=== PATIENT | female | born 1980 | race Caucasian/White ===

== ENCOUNTER 2022-09-11 06:49 | Observation (INO) ==
--- NOTE | 2022-09-11 07:20 | Emergency Department Note ---
History of Present Illness General Chief complaint: Abdominal Pain Stated complaint: SEVERE PAIN IN UPPER CENTER OF ABDOMEN Time Seen by Provider: 09/11/22 07:01 History of Present Illness Maximum Pain Intensity: 8 This is an otherwise healthy 42-year-old female that presents to the emergency department via private vehicle with complaints of "epigastric abdominal pain". Patient notes that about 28 hours ago she began with epigastric abdominal pain. She has tried Pepto-Bismol without relief. Pain continues. Patient also notes of 5 loose bowel movements yesterday some of which were greasy in appearance. Patient does note that she was recently on several different antibiotics over the past few months. No aggravating factors. No alleviating factors. There is associated chest tightness. No vomiting. No blood in the stool. Preceding the symptoms patient does note that she had a cheese steak stromboli. She has felt feverish over the past 2 weeks as well. She notes trouble sleeping and eating since the pain began. Home Medications Medication Instructions Recorded Confirmed Type fluoxetine 40 mg capsule 40 mg PO QAM 09/11/22 09/11/22 History prazosin 1 mg capsule (Minipress) 1 mg PO HS 09/11/22 09/11/22 History trazodone 150 mg tablet 150 mg PO HS PRN Sleep 09/11/22 09/11/22 History Allergies Allergy/AdvReac Type Severity Reaction Status Date / Time No Known Allergies Allergy Unverified 09/11/22 13:28 Past Med/Surg History Medical History History of gastroesophageal reflux (GERD) Surgical History Hx of section Social History Smoking Status: Current every day smoker Tobacco Type: E-cigarettes / Vaping Feels Safe at Home: Yes Review of Systems A total of 10 systems reviewed and were otherwise negative Physical Exam Vital Signs Vital Signs - 24 hr 09/11/22 06:53 09/11/22 07:26 09/11/22 07:31 Temperature 36.7 C Temperature Source Temporal Artery Scan Pulse Rate 86 82 85 Respiratory Rate 20 15 Respiratory Effort / Characteristics Non-Labored Respiratory Depth Normal Blood Pressure 162/93 H 141/90 H Blood Pressure Mean 116 107 Pulse Oximetry 98 Oxygen Delivery Method Room Air Sepsis Recent Fever Within 48 Hours No Sepsis New/Unexplained Change in Mental Status N/A Sepsis Action Taken by Nursing No Action Required 09/11/22 08:00 09/11/22 08:30 09/11/22 09:00 Temperature Temperature Source Pulse Rate 74 69 69 Respiratory Rate 13 17 19 Respiratory Effort / Characteristics Respiratory Depth Blood Pressure 137/101 H 123/87 120/84 Blood Pressure Mean 113 99 96 Pulse Oximetry 98 98 97 Oxygen Delivery Method Room Air Room Air Room Air Sepsis Recent Fever Within 48 Hours Sepsis New/Unexplained Change in Mental Status Sepsis Action Taken by Nursing 09/11/22 09:30 09/11/22 10:00 09/11/22 10:30 Temperature Temperature Source Pulse Rate 70 76 74 Respiratory Rate 14 16 18 Respiratory Effort / Characteristics Respiratory Depth Blood Pressure 117/77 128/77 118/76 Blood Pressure Mean 90 94 90 Pulse Oximetry 97 97 97 Oxygen Delivery Method Room Air Room Air Room Air Sepsis Recent Fever Within 48 Hours Sepsis New/Unexplained Change in Mental Status Sepsis Action Taken by Nursing 09/11/22 11:22 09/11/22 11:00 09/11/22 11:30 Temperature Temperature Source Pulse Rate 77 78 76 Respiratory Rate 19 19 Respiratory Effort / Characteristics Respiratory Depth Blood Pressure 132/89 105/81 Blood Pressure Mean 103 89 Pulse Oximetry 98 96 Oxygen Delivery Method Room Air Room Air Sepsis Recent Fever Within 48 Hours Sepsis New/Unexplained Change in Mental Status Sepsis Action Taken by Nursing 09/11/22 12:07 09/11/22 13:00 09/11/22 13:30 Temperature Temperature Source Pulse Rate 78 73 75 Respiratory Rate 16 16 19 Respiratory Effort / Characteristics Respiratory Depth Blood Pressure 130/86 110/70 Blood Pressure Mean 100 83 Pulse Oximetry 95 95 94 Oxygen Delivery Method Room Air Room Air Room Air Sepsis Recent Fever Within 48 Hours Sepsis New/Unexplained Change in Mental Status Sepsis Action Taken by Nursing 09/11/22 14:00 09/11/22 14:30 09/11/22 15:00 Temperature Temperature Source Pulse Rate 75 81 82 Respiratory Rate 15 13 13 Respiratory Effort / Characteristics Respiratory Depth Blood Pressure 113/73 111/67 117/70 Blood Pressure Mean 86 81 85 Pulse Oximetry 95 97 97 Oxygen Delivery Method Room Air Room Air Room Air Sepsis Recent Fever Within 48 Hours Sepsis New/Unexplained Change in Mental Status Sepsis Action Taken by Nursing 09/11/22 16:11 09/11/22 15:30 09/11/22 16:00 Temperature Temperature Source Pulse Rate 80 71 76 Respiratory Rate 16 19 Respiratory Effort / Characteristics Respiratory Depth Blood Pressure 105/68 112/66 Blood Pressure Mean 80 81 Pulse Oximetry 95 95 Oxygen Delivery Method Room Air Room Air Sepsis Recent Fever Within 48 Hours Sepsis New/Unexplained Change in Mental Status Sepsis Action Taken by Nursing VITAL SIGNS - Vital signs and nursing notes were reviewed. Stable and afebrile. GENERAL - 42-year-old female appearing her stated age who is in no acute distress. Communicates well with provider and answers questions appropriately. SKIN - Without rashes. No meningeal or petechial rash. HEAD - NC/AT. EYES - PERRL with EOMI bilaterally. EARS - No deformities of external structures noted on gross examination bilaterally. NOSE - Midline and without cyanosis. No epistaxis or purulent drainage noted. MOUTH/OROPHARYNX - Without perioral cyanosis. NECK - Neck with FROM. No nuchal rigidity. LUNGS - Chest wall symmetric without accessory muscle use, intercostals retr actions, or central cyanosis. Normal vesicular breath sounds CTA B/L. No wheezes, rales, or rhonchi appreciated. CARDIAC - RRR with S1/S2. No murmur, rubs, or gallops appreciated. ABDOMEN - Abdominal contour normal without pulsations or visible masses. BS normoactive all four quadrants. There is epigastric abdominal tenderness to palpation. No guarding or rigidity. No palpable masses, hepatosplenomegaly, or ascites noted. EXTREMITIES - No clubbing or peripheral cyanosis. +5/5 strength noted in UE/LE bilaterally. NEUROLOGIC - Cranial nerves II through XII grossly intact. PSYCH - A&O, and cooperates fully with examiner. Pt is very pleasant and interacts well with examiner. Course Administered Medications Sucralfate (Sucralfate 1 Gm/10 Ml Udc) 1 gm PO QID WILFRID Stop: 10/11/22 12:59 Last Admin: 09/11/22 16:15 Dose: 1 gm Documented By: Admin: 09/11/22 12:05 Dose: 1 gm Documented By: DMLarissa Discontinued Medications Al Hydrox/Mg Hydrox/Simethicone (Gi Cocktail Ed Use) 1 dose PO ONE ONE Stop: 09/11/22 09:30 Last Admin: 09/11/22 09:38 Dose: 1 dose Documented By: JACOBY Famotidine (Pepcid 20mg Iv Push) 20 mg in 5 mls @ 2.5 mls/min IV NOW STA Stop: 09/11/22 07:34 Last Admin: 09/11/22 07:51 Dose: 2.5 mls/min Documented By: JACOBY Ioversol (Optiray 350 100ml) 88 ml IV ONCE ONE Stop: 09/11/22 09:59 Last Admin: 09/11/22 09:51 Dose: 88 ml Documented By: QUAN Morphine Sulfate (Morphine Sulfate 4 Mg/Ml 1 Ml Carp\\Vial) 4 mg IV NOW STA Stop: 09/11/22 08:36 Last Admin: 09/11/22 08:41 Dose: 4 mg Documented By: JACOBY Morphine Sulfate (Morphine Sulfate 4 Mg/Ml 1 Ml Carp\\Vial) 4 mg IV NOW STA Stop: 09/11/22 09:30 Last Admin: 09/11/22 09:38 Dose: 4 mg Documented By: JACOBY Ondansetron HCl (Ondansetron Inj 2 Mg/Ml 2 Ml Vial) 4 mg IV NOW STA Stop: 09/11/22 07:34 Last Admin: 09/11/22 07:51 Dose: 4 mg Documented By: JACOBY Medical Decision Making Laboratory Data 09/11/22 07:30 09/11/22 07:30 Lab Results 09/11/22 09/11/22 09/11/22 Range/Units 07:30 07:30 07:30 WBC 9.14 (4.8-10.8) K/ul RBC 4.30 (4.20-5.40) M/uL Hgb 12.6 (12.0-16.0) g/dl Hct 37.7 (37.0-47.0) % MCV 87.7 (80.0-100.0) fL MCH 29.3 (25.0-34.0) pg MCHC 33.4 (32.0-36.0) g/dL RDW Std Deviation 43.8 (36.4-46.3) fL RDW Coeff of Jasmin 13.7 (11.5-14.5) % Plt Count 363 (130-400) K/uL MPV 9.3 L (9.4-12.4) fL Immature Gran % (Auto) 0.3 % Neut % (Auto) 53.7 % Lymph % (Auto) 29.5 % [place] % (Auto) 9.2 % Eos % (Auto) 6.8 % Baso % (Auto) 0.5 % Neut # (Auto) 4.90 (1.40-6.50) K/uL Lymph # (Auto) 2.70 (1.2-3.4) K/uL [place] # (Auto) 0.84 H (0.11-0.59) K/uL Eos # (Auto) 0.62 H (0-0.50) K/uL Baso # (Auto) 0.05 (0-0.2) K/uL Immature Gran # (Auto) 0.03 (0.01-0.20) K/uL Sodium 136 (136-145) mmol/L Potassium 3.7 (3.5-5.1) mmol/L Chloride 103 (98-107) mmol/L Carbon Dioxide 27 (21-32) mmol/L Anion Gap 6 (3-11) BUN 12 (6-23) mg/dl Creatinine 0.82 (0.6-1.2) mg/dl Est Cr Clr Drug Dosing 110.1 ml/min Est GFR ( Amer) 103.7 ml/min Est GFR (Non-Af Amer) 89.5 ml/min BUN/Creatinine Ratio 14.6 (10-20) Glucose 90 (70-99(Fasting)) mg/dl Calcium 9.4 (8.5-10.1) mg/dl Total Bilirubin 0.4 (0.2-1.0) mg/dl AST 22 (13-39) U/L ALT 26 (7-52) U/L Alkaline Phosphatase 63 (34-104) U/L Troponin I High Sens 2.9 (0-14) pg/ml Total Protein 8.1 (6.0-8.3) gm/dl Albumin 4.2 (3.4-5.0) gm/dl Globulin 3.9 (2.5-4.0) gm/dl Albumin/Globulin Ratio 1.1 (0.9-2) Lipase 20 (11-82) U/L HCG, Qual Negative (Negative) Urine Color Urine Appearance (Clear) Urine pH (4.5-7.5) Ur Specific [place] (1.000-1.030) Urine Protein (Negative) Urine Glucose (UA) (Negative) Urine Ketones (Negative) Urine Blood (Negative) Urine Nitrite (Negative) Urine Bilirubin (Negative) Urine Urobilinogen (Negative) Ur Leukocyte Esterase (Negative) POC Ur Test (NEG) SARS-CoV-2, RNA, NAAT (NEGATIVE) 09/11/22 09/11/22 09/11/22 Range/Units 07:41 07:56 08:06 WBC (4.8-10.8) K/ul RBC (4.20-5.40) M/uL Hgb (12.0-16.0) g/dl Hct (37.0-47.0) % MCV (80.0-100.0) fL MCH (25.0-34.0) pg MCHC (32.0-36.0) g/dL RDW Std Deviation (36.4-46.3) fL RDW Coeff of Jasmin (11.5-14.5) % Plt Count (130-400) K/uL MPV (9.4-12.4) fL Immature Gran % (Auto) % Neut % (Auto) % Lymph % (Auto) % [place] % (Auto) % Eos % (Auto) % Baso % (Auto) % Neut # (Auto) (1.40-6.50) K/uL Lymph # (Auto) (1.2-3.4) K/uL [place] # (Auto) (0.11-0.59) K/uL Eos # (Auto) (0-0.50) K/uL Baso # (Auto) (0-0.2) K/uL Immature Gran # (Auto) (0.01-0.20) K/uL Sodium (136-145) mmol/L Potassium (3.5-5.1) mmol/L Chloride (98-107) mmol/L Carbon Dioxide (21-32) mmol/L Anion Gap (3-11) BUN (6-23) mg/dl Creatinine (0.6-1.2) mg/dl Est Cr Clr Drug Dosing ml/min Est GFR ( Amer) ml/min Est GFR (Non-Af Amer) ml/min BUN/Creatinine Ratio (10-20) Glucose (70-99(Fasting)) mg/dl Calcium (8.5-10.1) mg/dl Total Bilirubin (0.2-1.0) mg/dl AST (13-39) U/L ALT (7-52) U/L Alkaline Phosphatase (34-104) U/L Troponin I High Sens (0-14) pg/ml Total Protein (6.0-8.3) gm/dl Albumin (3.4-5.0) gm/dl Globulin (2.5-4.0) gm/dl Albumin/Globulin Ratio (0.9-2) Lipase (11-82) U/L HCG, Qual (Negative) Urine Color Yellow Urine Appearance Clear (Clear) Urine pH 5.0 (4.5-7.5) Ur Specific [place] 1.020 (1.000-1.030) Urine Protein Negative (Negative) Urine Glucose (UA) Negative (Negative) Urine Ketones Negative (Negative) Urine Blood Negative (Negative) Urine Nitrite Negative (Negative) Urine Bilirubin Negative (Negative) Urine Urobilinogen Negative (Negative) Ur Leukocyte Esterase Negative (Negative) POC Ur Test NEG (NEG) SARS-CoV-2, RNA, NAAT NEGATIVE (NEGATIVE) Imaging Data Radiologist's Impression: Chest X-Ray 09/11/22 07:34 XR chest 1V portable CLINICAL HISTORY: Epigastric abdominal pain. COMPARISON STUDY: No previous studies for comparison. FINDINGS: There is no lucency under the hemidiaphragms to suggest pneumope ritoneum. Lung volumes are normal. Lungs are clear. There is no pneumothorax or pleural effusion. Cardiac size is normal. Mediastinal contours are normal. There is no evidence for pulmonary edema. IMPRESSION: No acute cardiopulmonary findings. ACT 112: Negative or not required by law. Electronically signed by: Carmelo Wilson M.D. 09/11/2022 8:06 AM Gallbladder Ultrasound 09/11/22 07:34 US gallbladder CLINICAL HISTORY: Epigastric abdominal pain. COMPARISON STUDY: No previous studies for comparison. FINDINGS: The liver is sonographically normal. There is no biliary ductal dilatation. The common bile duct measures 3 mm in caliber. The gallbladder is normal. There are no gallstones. Pancreatic body is normal. Head and tail are partially obscured. No right hydronephrosis. IMPRESSION: Unremarkable right upper quadrant ultrasound. ACT 112: Negative or not required by law. Electronically signed by: Carmelo Wilson M.D. 09/11/2022 8:47 AM Abdomen/Pelvis CT 09/11/22 09:29 CT abd pelvis IV con only CLINICAL HISTORY: Epigastric abd pain TECHNIQUE: Helical axial images of the abdomen and pelvis were obtained and displayed. Automated dose lowering techniques and/or adjustment according to patient size were utilized for this exam. This exam was performed with intravenous contrast. CT DOSE: 882.80 mGy.cm COMPARISON: Comparison is made to gallbladder ultrasound 09/11/2022 FINDINGS: Lower chest: No acute abnormality. Liver: Unremarkable. No focal lesions are seen. Gallbladder and biliary tree: No calcified gallstones. Normal caliber wall. No intra- or extrahepatic biliary ductal dilation. Pancreas: Unremarkable, no focal lesions. Spleen: Unremarkable. Adrenals: Unremarkable. Kidneys and ureters: Unremarkable. Bladder: Unremarkable. Reproductive organs: 11.0 cm left and 3.1 cm right ovarian cysts noted. Bowel: Unremarkable. Lymph nodes Retroperitoneal: Unremarkable. Pelvic: Unremarkable. Mesenteric: Unremarkable. Peritoneum: Normal. Vessels: Unremarkable. Abdominal wall: A fat-containing umbilical hernia is seen. Bones: Unremarkable. IMPRESSION: No acute abnormalities in particular no evidence of pancreatitis or cholecystitis. Large bilateral ovarian cysts are incidentally noted. ACT 112: Negative or not required by law. Electronically signed by: Nikolas Cheung M.D. 09/11/2022 10:13 AM [facility] Narrative Patient was seen and evaluated as above in room B03. Review was performed of triage nursing notes and vital signs. After obtaining a thorough history and physical examination the above work up was performed. Patient presents to us today with epigastric abdominal discomfort. No known trauma or injury. No fevers or chills. She notes decreased appetite/trouble eating this started when her symptoms started. Clinically she is well-appearing and nontoxic. She does have reproducible tenderness to palpation overlying the epigastric region of the abdomen. Options of care were discussed with the patient. IV access was established. Labs were drawn. She was medicated with IV fluids, IV antiemetics. IV analg esia also ordered. IV Pepcid ordered. GI cocktail also provided. Labs reveal no leukocytosis or concerning anemia. No emergent metabolic disturbance. Troponin within normal range. Urinalysis negative. UPT negative. COVID testing negative. EKG reveals normal sinus rhythm at a rate of 76 beats per minute. QTc 436. QRS 80. No ST elevation. No previous for comparison. Ultrasound of the gallbladder was unremarkable. Chest x-ray negative. Decision was made to proceed with a CT scan of the abdomen/pelvis. This was negative for emergent process. I did review her incidentals on the CT scan. She is to follow-up in the outpatient setting for the large bilateral ovarian cysts. These not felt to be causing her presentation today. Patient did require another dose of IV analgesics. With the patient having ongoing epigastric abdominal pain that is preventing her from sleeping and eating and also requiring multiple doses of IV narcotics at this time it is felt that further evaluation and management in the inpatient setting is warranted. Case discussed with the hospitalist. Please refer to further documentation regarding her stay. Patient amenable to plan of care. GCS: 15 In the evaluation and treatment of this patient, the following differential diagnoses were considered: ASC, IN, Pneumonia, GERD, Cholecystitis, Ascending Cholangitis, Cholydocholithiasis, Bowel Obstruction, PE, Amongst Others. Impression & Plan Abdominal pain, epigastric Discharge Plan Visit Data Chief Complaint: Abdominal Pain Stated Complaint: SEVERE PAIN IN UPPER CENTER OF ABDOMEN ED Provider: Chelsea Saleem ED Midlevel Provider: Ralf Rhodes Discharge Problem: Abdominal pain, epigastric Patient Disposition: Admitted As Inpatient Condition: Good Forms Stand Alone Forms: My [place] Prescriptions Prescriptions: No Action fluoxetine 40 mg Capsule 40 mg PO QAM prazosin [Minipress] 1 mg Capsule 1 mg PO HS trazodone 150 mg Tablet 150 mg PO HS PRN (Reason: Sleep) Referrals Referrals: PCP,NO [Physician] -
[2022-09-11] MEDS ORDERED: FAMOTIDINE 20MG IV PUSH 20 MG/5 ML SYR IV STA (07:33)
[2022-09-11] MEDS ORDERED: ONDANSETRON INJ 2 MG/ML 2 ML VIAL IV STA (07:33)
[2022-09-11 07:51] LABS: Basophils # (auto) 0.05 K/uL (0-0.2); Basophils % (auto) 0.5 %; Eosinophils # (auto) 0.62 K/uL (0-0.50); Eosinophils % (auto) 6.8 %; Hematocrit (blood only) 37.7 % (37.0-47.0); Hemoglobin 12.6 g/dl (12.0-16.0); Immature Granulocytes # (auto) 0.03 K/uL (0.01-0.20); Immature Granulocytes % (auto) 0.3 %; Lymphocytes % (auto) 29.5 %; Mean Corpuscular Hemoglobin 29.3 pg (25.0-34.0); Mean Corpuscular Hgb Conc 33.4 g/dL (32.0-36.0); Mean Corpuscular Volume 87.7 fL (80.0-100.0); Mean Platelet Volume 9.3 fL (9.4-12.4); Monocytes # (auto) 0.84 K/uL (0.11-0.59); Monocytes % (auto) 9.2 %; Neutrophils % (auto) 53.7 %; Platelet Count 363 K/uL (130-400); RDW Coefficient of Variation 13.7 % (11.5-14.5); RDW Standard Deviation 43.8 fL (36.4-46.3); White Blood Count 9.14 K/ul (4.8-10.8)
[2022-09-11 08:02] LABS: Pregnancy Test, Serum Negative (Negative)
[2022-09-11 08:04] LABS: Albumin Globulin Ratio 1.1 (0.9-2); Albumin Level 4.2 gm/dl (3.4-5.0); BUN Creatinine Ratio 14.6 (10-20); Bilirubin,Total 0.4 mg/dl (0.2-1.0); Calcium 9.4 mg/dl (8.5-10.1); Creatinine Clr Calc Pharmacy 110.1 ml/min; Est GFR (African American) 103.7 ml/min; Est GFR (Non-African American) 89.5 ml/min; Globulin 3.9 gm/dl (2.5-4.0); Potassium 3.7 mmol/L (3.5-5.1); Total Protein 8.1 gm/dl (6.0-8.3)
--- NOTE | 2022-09-11 08:08 | XRay Report ---
XR chest 1V portable CLINICAL HISTORY: Epigastric abdominal pain. COMPARISON STUDY: No previous studies for comparison. FINDINGS: There is no lucency under the hemidiaphragms to suggest pneumoperitoneum. Lung volumes are normal. Lungs are clear. There is no pneumothorax or pleural effusion. Cardiac size is normal. Medias tinal contours are normal. There is no evidence for pulmonary edema. IMPRESSION: No acute cardiopulmonary findings. ACT 112: Negative or not required by law. Electronically signed by: Carmelo Wilson M.D. 09/11/2022 8:06 AM
[2022-09-11 08:10] LABS: Troponin I High Sensitivity 2.9 pg/ml (0-14)
[2022-09-11 08:31] LABS: Appearance Urine Clear (Clear); Bilirubin Urine Negative (Negative); Blood Urine Negative (Negative); Color Urine Yellow; Glucose Urine UA Negative (Negative); Ketones Urine Negative (Negative); Leukocyte Esterase Urine Negative (Negative); Nitrite Urine Negative (Negative); Protein Urine Negative (Negative); Urobilinogen Urine Negative (Negative)
[2022-09-11] MEDS ORDERED: MoRPHine SULFATE 4 MG/ML 1 ML CARP\\VIAL IV STA ×2 (08:35→09:29)
--- NOTE | 2022-09-11 08:48 | Ultrasound Report ---
US gallbladder CLINICAL HISTORY: Epigastric abdominal pain. COMPARISON STUDY: No previous studies for comparison. FINDINGS: The liver is sonographically normal. There is no biliary ductal dilatation. The common bile duct measures 3 mm in caliber. The gallbladder is normal. There are no gallstones. Pancreatic body i s normal. Head and tail are partially obscured. No right hydronephrosis. IMPRESSION: Unremarkable right upper quadrant ultrasound. ACT 112: Negative or not required by law. Electronically signed by: Carmelo Wilson M.D. 09/11/2022 8:47 AM
[2022-09-11] MEDS ORDERED: GI COCKTAIL ED USE PO ONE (09:29)
[2022-09-11] MEDS ORDERED: OPTIRAY 350 100ml IV ONE (09:58)
--- NOTE | 2022-09-11 10:15 | CT Scan Report ---
CT abd pelvis IV con only CLINICAL HISTORY: Epigastric abd pain TECHNIQUE: Helical axial images of the abdomen and pelvis were obtained and displayed. Automated dose lowering techniques and/or adjustment according to patient size were utilized for this exam. This e xam was performed with intravenous contrast. CT DOSE: 882.80 mGy.cm COMPARISON: Comparison is made to gallbladder ultrasound 09/11/2022 FINDINGS: Lower chest: No acute abnormality. Liver: Unremarkable. No focal lesions are seen. Gallbladder and biliary tree: No calcified gallstones. Normal caliber wall. No intra- or extrahepatic biliary ductal dilation. Pancreas: Unremarkable, no focal lesions. Spleen: Unremarkable. Adrenals: Unremarkable. Kidneys and ureters: Unremarkable. Bladder: Unremarkable. Reproductive organs: 11.0 cm left and 3.1 cm right ovarian cysts noted. Bowel: Unremarkable. Lymph nodes Retroperitoneal: Unremarkable. Pelvic: Unremarkable. Mesenteric: Unremarkable. Peritoneum: Normal. Vessels: Unremarkable. Abdominal wall: A fat-containing umbilical hernia is seen. Bones: Unremarkable. IMPRESSION: No acute abnormalities in particular no evidence of pancreatitis or cholecystitis. Large bilateral ov lauren cysts are incidentally noted. ACT 112: Negative or not required by law. Electronically signed by: Nikolas Cheung M.D. 09/11/2022 10:13 AM
--- NOTE | 2022-09-11 11:18 | History & Physical Report ---
Date of Service September 11, 2022 Assessment & Plan (1) Abdominal pain: Plan: -Admit to med/surge -The patient is currently afebrile, hemodynamically stable, and stable on RA -At this time the patient's symptoms appear most-likely associated with gastritis and esophagitis but cannot rule out gallbladder/biliary etiology at this time -No signs of infection, symptoms exacerbated with greasy/fatty foods, CT of the abd/pelvis, RUQ US, and chest xray negative for acute findings -Will continue to treat as gastritis for now with BID IV famotidine, will start QID Carafate, and prn Zofran -Will start a clear liquid diet, advance as able -If her symptoms do not resolve would consider a HIDA scan and Gi consult for continue evaluation -BL SCDs for DVT ppx -AM CBC and BMP (2) Anxiety and depression: Plan: -Continue fluoxetine and HS trazodone for sleep Plan The patient was discussed with Dr. Smith at the time of the admission History of Present Illness Chief Complaint: abdominal pain Primary Care Provider: Mark Bruner DO Becki is a 42 year old female with a PMH significant for GERD, anxiety, and depression who presented to the [facility] ED on 09/11/22 with a chief complaint of epigastric abdominal pain. In the ED the patient was found to be afebrile, hemodynamically stable, and stable on RA. Labs including CBC, CMP, lipase, UA, and covid screen were WNL. Chest xray was read as "No acute cardiopulmonary findings.". RUQ US was read as "Unremarkable right upper quadrant ultrasound.". CT of the abd/pelvis with IV contrast was read as "No acute abnormalities in particular no evidence of pancreatitis or cholecystitis. Large bilateral ovarian cysts are incidentally noted.". Prior to admission the patient was given one dose of GI cocktail, 8 mg IV morphine, 4 mg IV zofran, and 20 mg IV famotidine but her symptoms persisted. At the time of the exam the patient was resting comfortably in bed in no acute distress. She states that she ate a cheese steak stromboli for dinner on Sunday (09/09); she woke up at 0300 on 09/10/22 with severe epigastric abdominal pain. She describes the pain as burning/cramping, an 8/10 at it's worst, with radiation to the back. She has been nauseous but denies any recent vomiting. When asked, she denies taking any medications to try and treat her pain at home. When asked, she feels as though she has been having chills and has been sweaty at night but has not taken her temperature. She has had a non-productive cough, denies SOB, chest pain, other abdominal pain, dysuria, hematuria, melena, bright red blood in her bowel movements, and recent LE swelling. When asked about bowel movements she states that she has been experiencing both diarrhea, and hard stool over the past few weeks. Yesterday she experienced approximately 5 ep isodes of non-bloody diarrhea and noted her last BM to be "oily". She states that since June she has been treated with multiple different Penicillin antibiotics for tooth and upper respiratory infections. She will sporadically take Naproxen for pain but has not taken any over the past week. She does not smoke tobacco but does use a Vape Pen which contains nicotine. She does not use alcohol and states that she is watched closely by her port patrol officer for Drug or alcohol use. Due to her symptoms she has been unable to eat or drink consistently over the past 24 hours. Since receiving her initial treatment in the ED her symptoms have improved but have not resolved. Please refer to Dr. Smith's attestation for any changes to the treatment plan Home Medications Medication Instructions Recorded Confirmed Type fluoxetine 40 mg capsule 40 mg PO QAM 09/11/22 09/11/22 History prazosin 1 mg capsule (Minipress) 1 mg PO HS 09/11/22 09/11/22 History trazodone 150 mg tablet 150 mg PO HS PRN Sleep 09/11/22 09/11/22 History Past Med/Surg History Medical History History of gastroesophageal reflux (GERD) Surgical History Hx of section Social History Smoking Status: Current every day smoker Tobacco Type: E-cigarettes / Vaping Feels Safe at Home: Yes Review of Systems Review of Systems: Denies current fever, chills, headache, changes in vision, hearing, taste, and smell, chest pain, SOB, cough, nausea, vomiting, hematemesis, melena, dysuria, hematuria, and recent falls. All systems have been reviewed and are otherwise negative. Physical Exam Physical Exam: Physical Exam: General: In no acute distress, stated age, well-nourished, good hygiene HEENT: Normocephalic, atraumatic, no scleral icterus, pupils around round, symmetrical, and reactive to light, moist mucus membranes, trachea midline, no thyromegaly Chest/Pulm: No respiratory distress, symmetrical chest expansion, clear breath sounds throughout Cardiac: RRR, no murmurs noted Abdomen: Negative for ascites and bruising, normoactive bowel sounds, soft, tender to palpation in the epigastric region, otherwise non-tender Musculoskeletal: Symmetrical and without signs of acute trauma, upper and lower extremities with full ROM, no atrophy, spasticity, or flaccidity; ankle bracelet for Mcpherson located on the left LE Extremities: Radial, dorsalis pedis, and posterior tibial pulses are intact and symmetrical, no edema noted in the BL LE's Skin: Warm, dry, no rashes , lesions, or scars noted Neuro: Alert and oriented to person, place, month, year, and president, no focal defects, CN II-XII tested and intact, no tremors noted Psych: No acute distress, calm and cooperative during the exam Results & Data Results & Data ([facility]) Vital Signs (Past 12 Hours) Vital Signs Temp Pulse Resp BP Pulse Ox O2 Del Method 09/11/22 10:30 74 18 118/76 97 Room Air 09/11/22 10:00 76 16 128/77 97 Room Air 09/11/22 09:30 70 14 117/77 97 Room Air 09/11/22 09:00 69 19 120/84 97 Room Air 09/11/22 08:30 69 17 123/87 98 Room Air 09/11/22 08:00 74 13 137/101 H 98 Room Air 09/11/22 07:31 85 15 141/90 H 09/11/22 07:26 82 09/11/22 06:53 36.7 C 86 20 162/93 H 98 Room Air Laboratory Results Abnormal lab results 09/11/22 Range/Units 07:30 MPV 9.3 L (9.4-12.4) fL [place] # (Auto) 0.84 H (0.11-0.59) K/uL [place] # (Auto) 0.62 H (0-0.50) K/uL Diagnostic Findings Chest X-Ray 09/11/22 07:34 XR chest 1V portable CLINICAL HISTORY: Epigastric abdominal pain. COMPARISON STUDY: No previous studies for comparison. FINDINGS: There is no lucency under the hemidiaphragms to suggest pneumoperitoneum. Lung volumes are normal. Lungs are clear. There is no pneumothorax or pleural effusion. Cardiac size is normal. Mediastinal contours are normal. There is no evidence for pulmonary edema. IMPRESSION: No acute cardiopulmonary findings. ACT 112: Negative or not required by law. Electronically signed by: Carmelo Wilson M.D. 09/11/2022 8:06 AM Gallbladder Ultrasound 09/11/22 07:34 US gallbladder CLINICAL HISTORY: Epigastric abdominal pain. COMPARISON STUDY: No previous studies for comparison. FINDINGS: The liver is sonographically normal. There is no biliary ductal dilatation. The common bile duct measures 3 mm in caliber. The gallbladder is normal. There are no gallstones. Pancreatic body is normal. Head and tail are partially obscured. No right hydronephrosis. IMPRESSION: Unremarkable right upper quadrant ultrasound. ACT 112: Negative or not required by law. Electronically signed by: Carmelo Wilson M.D. 09/11/2022 8:47 AM Abdomen/Pelvis CT 09/11/22 09:29 CT abd pelvis IV con only CLINICAL HISTORY: Epigastric abd pain TECHNIQUE: Helical axial images of the abdomen and pelvis were obtained and displayed. Automated dose lowering techniques and/or adjustment according to patient size were utilized for this exam. This exam was performed with intravenous contrast. CT DOSE: 882.80 mGy.cm COMPARISON: Comparison is made to gallbladder ultrasound 09/11/2022 FINDINGS: Lower chest: No acute abnormality. Liver: Unremarkable. No focal lesions are seen. Gallbladder and biliary tree: No calcified gallstones. Normal caliber wall. No intra- or extrahepatic biliary ductal dilation. Pancreas: Unremarkable, no focal lesions. Spleen: Unremarkable. Adrenals: Unremarkable. Kidneys and ureters: Unremarkable. Bladder: Unremarkable. Reproductive organs: 11.0 cm left and 3.1 cm right ovarian cysts noted. Bowel: Unremarkable. Lymph nodes Retroperitoneal: Unremarkable. Pelvic: Unremarkable. Mesenteric: Unremarkable. Peritoneum: Normal. Vessels: Unremarkable. Abdominal wall: A fat-containing umbilical hernia is seen. Bones: Unremarkable. IMPRESSION: No acute abnormalities in particular no evidence of pancreatitis or cholecystitis. Large bilateral ovarian cysts are incidentally noted. ACT 112: Negative or not required by law. Electronically signed by: Nikolas Cheung M.D. 09/11/2022 10:13 AM ECG Additional Comments: Normal sinus rhythm Normal ECG No previous ECGs available Confirmed by Guillermo Horn ([id number]) on 09/11/2022 11:24:59 AM Code Status & VTE Plan Code Status Full code VTE Prophylaxis Plan VTE Prophylaxis will be ordered: Yes Supervising Physician Co-Signing Physician Notes PA Supervision Note: I personally saw and examined the patient. I verified all cantrell points and agree with JASS Pete with the following exceptions and/or additions: Subjective: 42-year-old female with a past medical history of GERD, anxiety, depression who presents with 2 days of intermittent cramping severe epigastric pain that sometimes radiates into the back. She does not eat very many greasy or fatty foods however did have a cheese steak stromboli 2 days ago, does eat some tomato containing foods (does eat SpaghettiOs on a fairly regular basis, including about 4 bites last night). No recent fevers or chills, chest pain, shortness of breath, fevers associated with this. No dizziness or lightheadedness, sensation of passing out. She did not take any medications at home, does endorse some relief with the GI cocktail that she received in the ER. Physical exam: Vitals reviewed Gen: Alert and oriented, NAD HEENT: anicteric sclerae, EOMI CV: RRR no murmurs, no peripheral edema Pulm: CTAB no wheezes, crackles Abd: +BS, abdomen soft, moderately tender in the epigastric region otherwise nontender Ext: no edema Skin: no rashes, warm/dry Neuro: No focal neurologic deficits Labs, Rads, and ECG reviewed: CBC, CMP, urinalysis unremarkable, COVID-19 ne gative. Troponin normal. CTAP with IV contrast without evidence of aortic abnormality, gallbladder normal-appearing. Gallbladder ultrasound also without acute pathology. Chest x-ray without evidence of pneumonia or other acute pathology. EKG personally interpreted with me shows normal sinus rhythm with a heart rate of 76, normal AL/QRS/QTc, no ST or T wave abnormalities Assessment and Plan: Epigastric pain, suspected GERD/gastritis: Symptoms fairly significant despite GI cocktail that she is receiving in the ER, though they did help some with her symptoms. Pepcid IV twice daily and Carafate for suspected gastritis, will be curious to see if patient's symptoms improve with some light diet as it is possible that she has PUD. If symptoms not improving with the above we will add PPI. If symptoms still not improving will ask for GI consult and get HIDA scan, LFTs and WBC count negative so less likely however not impossible that it will declare itself over the coming day. Plan otherwise as stated above. PG Care Time/CCT Total # of Minutes Spent Total Time Spent with Patient: Total time spent is greater than 50% in coordination of care (as documented) at patient's floor/unit and/or counseling patient: C[place] [address] INT INP/OBS CARE 3/75MIN Patient Type Established Medical Decision Making High Complexity Diagnoses Abdominal pain R10.9 Anxiety and depression F41.9; F32.A
--- NOTE | 2022-09-11 11:25 | Electrocardiogram Report ---
Test Reason : Blood Pressure : / mmHG Vent. Rate : 076 BPM Atrial Rate : 076 BPM P-R Int : 156 ms QRS Dur : 080 ms QT Int : 388 ms P-R-T Axes : 021 011 039 degrees QTc Int : 436 ms Normal sinus rhythm Normal ECG No previous ECGs available Confirmed by Guillermo Horn ([id number]) on 09/11/2022 11:24:59 AM Referred By: REFERRED SELF Confirmed By:Rancho Horn
[2022-09-11] MEDS: SUCRALFATE 1 GM/10 ML UDC PO SCH ×3 (12:05→20:42)
[2022-09-11] MEDS ORDERED: Patient's ALLERGY Info needs ENTERED SCH (13:15)
[2022-09-11] MEDS ORDERED: traZODone HCL 50 MG TAB PO PRN (17:52)
[2022-09-11] MEDS: ondansetron HCL 6 MG in DEXTROSE 5% 50 ML IV PRN (18:13)
[2022-09-11] MEDS: MoRPHine SULFATE 2 MG/ML CARP IV PRN (18:31)
[2022-09-11] MEDS: FAMOTIDINE 20 MG in SYRINGE 3 ML IV SCH (20:02)
[2022-09-11] MEDS: PANTOprazole 40 MG in SYRINGE 0 ML IV SCH (20:02)
[2022-09-12] MEDS: MoRPHine SULFATE 2 MG/ML CARP IV PRN ×2 (02:27→07:46)
[2022-09-12] MEDS: ondansetron HCL 6 MG in DEXTROSE 5% 50 ML IV PRN (02:35)
[2022-09-12 06:59] LABS: Hemoglobin 11.3 g/dl (12.0-16.0); Mean Corpuscular Hemoglobin 29.4 pg (25.0-34.0); Mean Corpuscular Hgb Conc 33.2 g/dL (32.0-36.0); Mean Corpuscular Volume 88.3 fL (80.0-100.0); Mean Platelet Volume 9.2 fL (9.4-12.4); Platelet Count 317 K/uL (130-400); RDW Coefficient of Variation 13.7 % (11.5-14.5); RDW Standard Deviation 44.4 fL (36.4-46.3); Red Blood Count 3.85 M/uL (4.20-5.40); White Blood Count 9.21 K/ul (4.8-10.8)
[2022-09-12 07:14] LABS: BUN Creatinine Ratio 16.5 (10-20); Calcium 8.6 mg/dl (8.5-10.1); Creatinine Clr Calc Pharmacy 106.2 ml/min; Est GFR (African American) 99.3 ml/min; Est GFR (Non-African American) 85.7 ml/min; Magnesium 2.1 mg/dl (1.7-2.4)
[2022-09-12] MEDS: PANTOprazole 40 MG in SYRINGE 0 ML IV SCH (07:46)
[2022-09-12] MEDS: FAMOTIDINE 20 MG in SYRINGE 3 ML IV SCH (07:48)
[2022-09-12] MEDS: SUCRALFATE 1 GM/10 ML UDC PO SCH ×4 (07:56→22:06)
[2022-09-12] MEDS: FLUoxetine HCL 20 MG CAP PO SCH (07:56)
[2022-09-12] MEDS: ACETAMINOPHEN 325 MG TAB PO PRN ×2 (11:00→16:59)
--- NOTE | 2022-09-12 15:02 | Hospitalist Progress Note ---
Date of Service September 12, 2022 Assessment & Plan (1) Abdominal pain: Plan: Due to suspected acute gastritis. Continue PPI therapy and Carafate suspension. Advance diet as tolerated. She is eating well enough that no IV fluids needed at this time. No melena or hematochezia. (2) Anxiety and depression: Plan: Stable. Treated with fluoxetine Plan Hopeful discharge to home tomorrowSeptember 13 Admission and Anticipated Discharge Date Admission Date: September 11, 2022 Subjective Alert and oriented. Afebrile with stable vital signs. I suspect she has acute gastritis causing her symptoms. Diet has been advanced. Continue PPI therapy and Carafate suspension. Probably home tomorrowSeptember 13 Review of Systems Review of Systems: Constitutional-no fever or chills ENT-no blurred vision, no double vision, no epistaxis, no sore throat Respiratory-no cough, no wheezing, no shortness of breath Cardiac-no palpitations, no chest pain, no syncope GI-epigastric discomfort and intermittent nausea. No vomiting. No melena. No hematochezia -no urinary retention, no urinary incontinence, no dysuria, no hematuria Musculoskeletal-no joint pain, no muscle tenderness Skin-no bruising, no rashes, no pruritus Neuro-no isolated weakness, no paresthesia, no weakness Psych-no depression, no anxiety Physical Exam Physical Exam: General-alert and oriented x3, no fevers, no chills HEENT-head atraumatic and normocephalic, pupils equal and reactive to light, extraocular muscles intact Neck-no lymphadenopathy or thyromegaly, trachea midline Chest-clear to auscultation percussion. No rales wheezing or rhonchi Cardiac-regular rate and rhythm, normal S1 and S2 Abdomen-normal bowel sounds, mild epigastric tenderness. No rebound or guarding. Extremities-no cyanosis, clubbing, or edema Neuro-cranial nerves II through XII intact, motor and sensory function within normal limits, strength symmetrical , no focal deficits Psych-normal affect, normal mood Results & Data Results & Data ([facility]) Vital Signs (Past 12 Hours) Vital Signs Temp Pulse Resp BP Pulse Ox O2 Del Method 09/12/22 11:19 36.6 C 77 16 113/76 99 Room Air 09/12/22 07:31 36.8 C 82 16 105/69 97 Room Air Laboratory Results 09/12/22 06:35 09/12/22 06:35 PG Care Time/CCT Total # of Minutes Spent Total Time Spent with Patient: Total time spent is greater than 50% in coordination of care (as documented) at patient's floor/unit and/or counseling patient: Coding Level of Care Code 03952 SUB INP/OBS CARE 3/50MIN Diagnoses Abdominal pain R10.9 Anxiety and depression F41.9; F32.A
[2022-09-12] MEDS: PANTOprazole 40 MG TAB PO SCH (22:05)
[2022-09-13] MEDS: PANTOprazole 40 MG TAB PO SCH (08:17)
[2022-09-13] MEDS: SUCRALFATE 1 GM/10 ML UDC PO SCH (08:18)
[2022-09-13] MEDS: FLUoxetine HCL 20 MG CAP PO SCH (08:18)
[2022-09-13 08:46] LABS: Basophils # (auto) 0.03 K/uL (0-0.2); Basophils % (auto) 0.4 %; Eosinophils # (auto) 0.43 K/uL (0-0.50); Hematocrit (blood only) 38.5 % (37.0-47.0); Hemoglobin 12.5 g/dl (12.0-16.0); Immature Granulocytes # (auto) 0.01 K/uL (0.01-0.20); Immature Granulocytes % (auto) 0.1 %; Lymphocytes # (auto) 2.66 K/uL (1.2-3.4); Lymphocytes % (auto) 31.1 %; Mean Corpuscular Hemoglobin 29.1 pg (25.0-34.0); Mean Corpuscular Hgb Conc 32.5 g/dL (32.0-36.0); Mean Corpuscular Volume 89.7 fL (80.0-100.0); Mean Platelet Volume 9.4 fL (9.4-12.4); Monocytes # (auto) 0.79 K/uL (0.11-0.59); Monocytes % (auto) 9.2 %; Neutrophils # (auto) 4.64 K/uL (1.40-6.50); Neutrophils % (auto) 54.2 %; Platelet Count 334 K/uL (130-400); RDW Coefficient of Variation 13.5 % (11.5-14.5); RDW Standard Deviation 44.4 fL (36.4-46.3); Red Blood Count 4.29 M/uL (4.20-5.40); White Blood Count 8.56 K/ul (4.8-10.8)
[2022-09-13 09:12] LABS: BUN Creatinine Ratio 13.3 (10-20); Calcium 8.9 mg/dl (8.5-10.1); Creatinine Clr Calc Pharmacy 108.8 ml/min; Est GFR (African American) 102.2 ml/min; Est GFR (Non-African American) 88.2 ml/min; Potassium 3.4 mmol/L (3.5-5.1)
--- NOTE | 2022-09-13 09:43 | Discharge Summary ---
Date of Service September 13, 2022 Admission HPI Per Admitting Provider Becki is a 42 year old female with a PMH significant for GERD, anxiety, and depression who presented to the [facility] ED on 09/11/22 with a chief complaint of epigastric abdominal pain. In the ED the patient was found to be afebrile, hemodynamically stable, and stable on RA. Labs including CBC, CMP, lipase, UA, and covid screen were WNL. Chest xray was read as "No acute cardiopulmonary findings.". RUQ US was read as "Unremarkable right upper quadrant ultrasound.". CT of the abd/pelvis with IV contrast was read as "No acute abnormalities in particular no evidence of pancreatitis or cholecystitis. Large bilateral ovarian cysts are incidentally noted.". Prior to admission the patient was given one dose of GI cocktail, 8 mg IV morphine, 4 mg IV zofran, and 20 mg IV famotidine but her symptoms persisted. At the time of the exam the patient was resting comfortably in bed in no acute distress. She states that she ate a cheese steak stromboli for dinner on Sunday (09/09); she woke up at 0300 on 09/10/22 with severe epigastric abdominal pain. She describes the pain as burning/cramping, an 8/10 at it's worst, with radiation to the back. She has been nauseous but denies any recent vomiting. When asked, she denies taking any medications to try and treat her pain at home. When asked, she feels as though she has been having chills and has been sweaty at night but has not taken her temperature. She has had a non-productive cough, denies SOB, chest pain, other abdominal pain, dysuria, hematuria, melena, bright red blood in her bowel movements, and recent LE swelling. When asked about bowel movements she states that she has been experiencing both diarrhea, and hard stool over the past few weeks. Yesterday she experienced approximately 5 episodes of non-bloody diarrhea and noted her last BM to be "oily". She states that since June she has been treated with multiple different Penicillin antibiotics for tooth and upper respiratory infections. She will sporadically take Naproxen for pain but has not taken any over the past week. She does not smoke tobacco but does use a Vape Pen which contains nicotine. She does not use alcohol and states that she is watched closely by her chief quality officer for Drug or alcohol use. Due to her symptoms she has been unable to eat or drink consistently over the past 24 hours. Since receiving her initial treatment in the ED her symptoms have improved but have not resolved. Please refer to Dr. Smith's attestation for any changes to the treatment plan Principal Diagnosis Acute gastritis causing epigastric pain Discharge Exam General-alert and oriented x3, no fevers, no chills HEENT-head atraumatic and normocephalic, pupils equal and reactive to light, extraocular muscles intact Neck-no lymphadenopathy or thyromegaly, trachea midline Chest-clear to auscultation percussion. No rales wheezing or rhonchi Cardiac-regular rate and rhythm, normal S1 and S2 Abdomen-normal bowel sounds, mild epigastric tenderness has now resolved. No rebound or guarding. Extremities-no cyanosis, clubbing, or edema Neuro-cranial nerves II through XII intact, motor and sensory function within normal limits, strength symmetrical , no focal deficits Psych-normal affect, normal mood Discharge Data Allergies Allergy/AdvReac Type Severity Reaction Status Date / Time No Known Allergies Allergy Unverified 09/11/22 13:28 Consultations 09/11/22 11:15 ED Decision to Admit Stat Ordered Studies 09/11/22 07:34 US gallbladder Stat 09/11/22 09:29 CT abd pelvis IV con only Stat Hospital Course (1) Abdominal pain: Due to suspected acute gastritis. Treated while hospitalized with PPI therapy and Carafate suspension. Advanced diet as tolerated. No melena or hematochezia. (2) Anxiety and depression: Stable. Treated with fluoxetine Plan Home today, September 13. Will continue Protonix therapy and Carafate suspension Total Time Total Time Spent Total Time Spent (In Minutes): 35 minutes Discharge Plan Discharge Items Patient Disposition: Home - Self-Care Reason For Visit: ABD PAIN Discharge Diagnosis: Acute gastritis causing epigastric pain Condition on Discharge: Good Activity: Resume your previous activity Non-emergency contact: Primary Care Provider Call non-emergency contact if: you have any medication questions Follow-up/Referrals: Mark Bruner DO [Primary Care Provider] - Diet: Regular Addtl Attending Provider Instructions: Take Prilosec 40 mg daily indefinitely. Take Carafate suspension for 1 week Pending Studies at Discharge: No Stand-Alone Forms: My [facility], Smoking Cessation Medications and DC Order Prescriptions: New pantoprazole [Protonix] 40 mg tablet,delayed release (DR/EC) 40 mg PO DAILY Qty: 30 0RF sucralfate [Carafate] 100 mg/mL suspension 1 g PO ACHS Qty: 400 0RF Continued fluoxetine 40 mg Capsule 40 mg PO QAM prazosin [Minipress] 1 mg Capsule 1 mg PO HS trazodone 150 mg Tablet 150 mg PO HS PRN (Reason: Sleep) Discharge Orders: Discharge Order (Routine); Ordered 09/13/22 Ordered By: Boris Deluna Admission Data Admit Date/Time: 09/11/22 11:17 Attending Provider: Boris Deluna Admit Provider: Nina Smith Primary Care Provider: Mark Bruner Other Providers: Nina Smith Coding Level of Care Code HOSP INP/OBS DISCH >30 MIN Diagnoses Abdominal pain R10.9 Anxiety and depression F41.9; F32.A
--- NOTE | 2022-09-16 08:20 | Hospitalist Progress Note ---
Date of Service September 12, 2022 Assessment & Plan Admission and Anticipated Discharge Date Admission Date: September 11, 2022 Results & Data Results & Data ([facility]) Vital Signs (Past 12 Hours) Vital Signs Temp Pulse Resp BP Pulse Ox O2 Del Method 09/12/22 11:19 36.6 C 77 16 113/76 99 Room Air 09/12/22 07:31 36.8 C 82 16 105/69 97 Room Air PG Care Time/CCT Total # of Minutes Spent Total Time Spent with Patient: Total time spent is greater than 50% in coordination of care (as documented) at patient's floor/unit and/or counseling patient: Coding Level of Care Code 53617 SUB INP/OBS CARE 2/35MIN Diagnoses
== END 2022-09-13 11:19 | disposition home or self-care (01) ==
LOC: ED 06:49 → 3W 06:49 → SUATTDRO 11:17 → 3W 17:36